=== PATIENT | male | born 1970 ===

== ENCOUNTER 2021-10-17 12:49 | Emergency (ER) | payer MEDICARE ==
--- NOTE | 2021-10-17 14:06 | Emergency Department Report ---
HPI - General Chief Complaint: Psych Time Seen by Provider: 10/17/21 13:43 - HPI HPI: 51-year-old male with unknown past medical history presents complaining of hearing voices and having unspecified psych issues including anxiety. The patient states that he drank coffee today with a friend which she is not supposed to do. Afterwards he says somebody called police on him for unknown reason. He says that he is hearing voices in his head which are not telling him to do anything. He denies HI or SI. He denies any medical symptoms or complaints whatsoever including headache, vision change, neck pain, chest pain, shortness of breath, cough, palpitations, abdominal pain, nausea/vomiting, or any other complaints. It is unclear whether the patient lives alone or is in a program of some kind. ED Past Medical Hx - Past Medical History Previous Medical History?: No ED Review of Systems ROS: Stated complaint: HALLUCINATIONS Other details as noted in HPI Constitutional: denies: chills, fever Eyes: denies: eye pain, vision change ENT: denies: throat pain, congestion Respiratory: denies: cough, shortness of breath Cardiovascular: denies: chest pain, palpitations Gastrointestinal: denies: abdominal pain, nausea, vomiting Genitourinary: denies: dysuria, hematuria Musculoskeletal: denies: back pain, joint swelling Skin: denies: rash Neurological: denies: headache, weakness, numbness Psychiatric: anxiety, auditory hallucinations. denies: visual hallucinations, homicidal thoughts, suicidal thoughts Physical Exam - Physical Exam Vital Signs: Vital Signs 10/17/21 12:52 Temperature 99.5 F Pulse Rate 124 H Respiratory 18 Rate Blood Pressure 160/100 [Left] O2 Sat by Pulse 98 Oximetry Physical Exam: GENERAL: Well developed and well nourished. No acute distress HEAD: Normocephalic. No obvious signs of trauma. ENT: Slightly dry mucous membranes. EYES: Extraocular movements are intact. Pupils are equal round and reactive to light bilaterally NECK: Supple. Full ROM is intact. Trachea is midline. LUNGS: Nonlabored breathing. Equal chest rise bilaterally. Clear to auscultation bilaterally. CARDIOVASCULAR: Regular rate and rhythm. No murmurs or rubs. VASCULAR: Cap refill < 2 seconds ABDOMEN: Abdomen is soft and nondistended. There is no significant tenderness, guarding or rebound. SKIN: Skin is warm and dry NEURO: Patient is awake, alert, and oriented. ranch rider II-XII grossly intact. No focal deficits. Normal motor and sensory exam throughout. Normal speech. PSYCH: Pressured and tangential/circumferential speech MUSCULOSKELETAL: No obvious deformities. No significant tenderness. Normal ROM throughout. ED Course Vital Signs 10/17/21 12:52 Temperature 99.5 F Pulse Rate 124 H Respiratory 18 Rate Blood Pressure 160/100 [Left] O2 Sat by Pulse 98 Oximetry ED Medical Decision Making - Lab Data Result diagrams: 10/17/21 14:51 10/17/21 14:51 - Medical Decision Making 49-year-old male presenting with psych complaints including anxiety and audiotry hallucinations. Admits to drinking coffee earlier today. Presented with tachycardia but has dry mucous membranes and admits he has not been drinking much liquid. Denies SI/HI but confirms auditory hallucinations. Will reach out for further information about the patient's resident status. In the meantime we will place temporary ER hold and have the patient evaluated by the psych team. Labs have resulted and reveal no significant leukocytosis or anemia. Creatinine is within normal range and there are no significant electrolyte abnormalities. Patient is medically cleared for psychiatric evaluation and placement if necessary. Patient was seen by the mental health process design engineer who recommends discharge back to his half-way. Critical care attestation.: If time is entered above; I have spent that time in minutes in the direct care of this critically ill patient, excluding procedure time. ED Disposition Clinical Impression: Anxiety, Auditory hallucinations Disposition: 01 HOME / SELF CARE / HOMELESS Is pt being admited?: No Condition: Stable Instructions: Managing Anxiety, Adult Additional Instructions: Please follow-up using the following outpatient resources. Return to the emergency department should you develop any worsening symptoms or new health concerns. OUTPATIENT MENTAL HEALTH RESOURCES [facility], [facility] Sanjiv Sims MD: [address], [address] [place] [address] [place] [address] [facility]: [employer] [address] [place] [address] [place] [address] [phone] [facility]: [facility]: [address] [place] [address] [address] [place] [address] [place] [address] [facility] [id number] [facility]: Mina Mcgregor MD: [address] [facility] [address] [facility] [id number] [facility]: [address] [place] [id number] [phone] [place] CRISIS AND ACCESS LINE: Referrals: PRIMARY CAREMD [Primary Care Provider] - 3-5 Days
[2021-10-17 15:04] LABS: Bilirubin,Urine NEG (Negative); Blood,Urine NEG (Negative); Color,Urine Yellow (Yellow); Mucus,Urine 1+ /HPF; Protein,Urine <15 mg/dL mg/dL (Negative); Urobilinogen,Urine < 2.0 mg/dL (<2.0)
[2021-10-17 15:11] LABS: Amphetamine Screen,Urine Negative; Benzodiazepines Screen,Urine Negative; Cannabinoid Screen,Urine Negative; Cocaine Screen,Urine Negative; Methadone Screen,Urine Negative; Opiate Screen,Urine Negative
[2021-10-17 15:22] LABS: BUN/Creatinine Ratio 10; Blood Urea Nitrogen 9 mg/dL (9-20); Calcium 9.1 mg/dL (8.4-10.2); Hemolysis Index 21
[2021-10-17 16:44] LABS: Basophils # (Auto) 0.1 K/mm3 (0.0-0.1); Basophils % (Auto) 1.2 % (0.0-1.8); Eosinophils # (Auto) 0.2 K/mm3 (0.0-0.4); Eosinophils % (Auto) 3.8 % (0.0-4.3); Hematocrit 45.4 % (35.5-45.6); Hemoglobin 14.3 gm/dl (11.8-15.2); Lymphocytes # (Auto) 1.4 K/mm3 (1.2-5.4); Lymphocytes % (Auto) 32.6 % (13.4-35.0); Mean Corpuscular HGB Conc 32 % (32-34); Mean Corpuscular Volume 92 fl (84-94); Monocytes # (Auto) 0.4 K/mm3 (0.0-0.8); Monocytes % (Auto) 9.4 % (0.0-7.3); Platelet Count 255 K/mm3 (140-440); Red Blood Count 4.92 M/mm3 (3.65-5.03); Red Cell Distribution Width 13.5 % (13.2-15.2)
[2021-10-17 20:28] VITALS: BP 118/79
== END 2021-10-17 20:27 | disposition home or self-care (01) ==
LOC: ED 12:49
DX: R44.0 Auditory hallucinations (principal); F41.9 Anxiety disorder, unspecified
CPT/HCPCS: 36415; 80048; 80307; 80320; 81001; 84443; 85025; 99284; G0480